=== PATIENT | male | born 1985 | race African-American/Black ===

== ENCOUNTER 2016-07-27 06:52 | Emergency (ER) | payer OTHER ==
[2016-07-27 07:11] VITALS: TEMP 98.4; BMI 30.7
--- NOTE | 2016-07-27 07:18 | PDOC ---
History of Present Illness - General Chief Complaint: Pain Stated Complaint: ABD PAIN Time Seen by Provider: 07/27/16 07:16 History Source: Patient Exam Limitations: No Limitations - History of Present Illness Initial Comments: CHIEF COMPLAINT: 31 y/o afebrile male with no significant PMH c/o abdominal pain, diarrhea and nausea since yesterday. HISTORY OF PRESENT ILLNESS: The patient states he's had a few episodes of watery diarrhea. He states he's been nervous to eat because it causes pain in his stomach and points to the epigastric region. He denies f/c, FINE, vomiting, CP, SOB, back pain, hematuria, dysuria. Vital signs on arrival are within normal limits. REVIEW OF SYSTEMS: GENERAL/CONSTITUTIONAL: No fever/chills. No weakness. No weight change. HEAD, EYES, EARS, NOSE AND THROAT: No change in vision. No ear pain or discharge. No sore throat. CARDIOVASCULAR: No chest pain or shortness of breath. RESPIRATORY: No cough, wheezing, or hemoptysis. GASTROINTESTINAL: +abd pain, diarrhea, nausea. No vomiting. GENITOURINARY: No dysuria, frequency, or change in urination. MUSCULOSKELETAL: No joint or muscle swelling or pain. No neck or back pain. SKIN: No rash or easy bruising. NEUROLOGIC: No headache, vertigo, loss of consciousness, or loss of sensation. PHYSICAL EXAM: GENERAL: The patient is awake, alert, and fully oriented, in no acute distress. He is ambulatory and appears uncomfortable. HEAD: Normal with no signs of trauma. ENT: Pupils equal, round and reactive to light, extraocular movements intact, sclera anicteric, conjunctiva clear. Neck supple. LUNGS: Clear to auscultation bilaterally. Normal excursion. No respiratory distress or use of accessory muscles. CV: RRR, S1/S2, no MRG. Cap refill < 2 sec. ABDOMEN: Soft, non-distended, TTP of epigastric region with +pritchard's sign. No rebound, guarding, rigidity. EXTREMITIES: Normal range of motion, no edema. NEUROLOGICAL: Normal speech, normal gait. CN II-XII grossly intact. PSYCH: Normal mood, normal affect. SKIN: Warm, dry, normal turgor, no rashes or lesions noted. Timing/Duration: reports: constant Past History - Past Medical History Allergies/Adverse Reactions: Allergies Allergy/AdvReac Type Severity Reaction Status Date / Time No Known Allergies Allergy Verified 07/27/16 07:08 Home Medications: Ambulatory Orders NK [No Known Home Medication] 07/27/16 Suicide Attempt (Hx): No Other medical history: denies - Immunization History Immunization Up to Date: No - Psycho/Social/Smoking Cessation Hx Anxiety: No Suicidal Ideation: No Smoking Status: No Smoking History: Never smoked Number of Cigarettes Smoked Daily: 5 Hx Alcohol Use: Yes (OCCASIONALLY) Drug/Substance Use Hx: No Substance Use Type: Alcohol, Marijuana *Physical Exam - Vital Signs Last Vital Signs Temp Pulse Resp BP Pulse Ox 98.4 F 70 18 142/93 98 07/27/16 07:09 07/27/16 07:09 07/27/16 07:09 07/27/16 07:09 07/27/16 07:09 ED Treatment Course - LABORATORY CBC & Chemistry Diagram: 07/27/16 09:10 07/27/16 09:10 Medical Decision Making - Medical Decision Making A/P: 31 y/o male with abdominal pain and diarrhea since yesterday. Plan is as follows: 1. Labs 2. IV fluids 3. IV zofran and pepcid 4. Gallbladder ultrasound Gallbladder ultrasound IMPRESSION: No evidence of acute pathology Labs unremarkable. Pt states he is no longer nauseous but still has some abdominal discomfort. He was able to pass a PO challenge, eating and drinking in the ER without subsequent vomiting. Pt will be discharged to home with dx of GI virus. Suggested he slowly rehydrate with fluids and slowly advance bland diet Instructed him to return to the ER with any worsening or concerning symptoms. The patient verbalizes understanding of all instructions, has no further questions and is awaiting discharge. *DC/Admit/Observation/Transfer Diagnosis at time of Disposition: Gastroenteritis - Discharge Dispostion Disposition: HOME Condition at time of disposition: Improved - Referrals Referrals: Judy Liu MD [Primary Care Provider] - Call tomorrow - Patient Instructions Printed Discharge Instructions: DI for Viral Gastroenteritis -- Adult, Gastroenteritis Diet Additional Instructions: Discharge Instructions: -Continue rehydrating by drinking fluids such as gatorade, water. -Slowly reintroduce suggested Gastroenteritis diet -Get plenty of rest -Follow up with Dr. Liu this week -Return to the ER with any worsening or concerning symptoms - Post Discharge Activity Work/School Note: Back to Work
[2016-07-27] MEDS ORDERED: SODIUM CHLORIDE 1,000 ML IV STA (07:26)
[2016-07-27] MEDS ORDERED: ONDANSETRON 4 MG/2 ML VIAL IVPUSH ONE (07:26)
[2016-07-27] MEDS ORDERED: FAMOTIDINE 20 MG/50 ML IVPB 50 ML IVPB ONE ×2 (07:26→08:07)
[2016-07-27] MEDS ORDERED: ONDANSETRON 4 MG/2 ML VIAL ONE (08:07)
[2016-07-27 09:45] LABS: BASOPHIL 0.3 % (0-2.0); EOSINOPHIL 4.2 % (0-4.5); MCH 33.6 pg (25.7-33.7); MCHC 34.4 g/dl (32.0-35.9); MEAN CELL VOLUME 97.5 fl (80-96); MEAN PLT VOLUME 8.5 fl (7.5-11.1); NEUTROPHILS 73.1 % (42.8-82.8); PLATELET COUNT 211 K/MM3 (134-434); RDW 13.2 % (11.9-15.9); WHITE BLOOD COUNT 7.9 K/mm3 (4.0-10.0)
[2016-07-27 10:04] LABS: ALBUMIN 3.9 g/dl (3.4-5.0); ANION GAP 10 (8-16); BILIRUBIN,TOTAL 0.9 mg/dL (0.2-1.0); CALCIUM 9.4 mg/dL (8.5-10.1); CO2 23 mmol/L (21-32); CREATININE 1.1 mg/dL (0.7-1.3); GLUCOSE,RANDOM 83 mg/dL (74-106); SGPT/ALT 54 U/L (12-78); TOT PROT 7.1 g/dl (6.4-8.2)
[2016-07-27 10:05] LABS: ALK PHOS 91 U/L (45-117)
[2016-07-27 10:07] LABS: SGOT/AST 38 U/L (15-37)
[2016-07-27 11:16] VITALS: BP 136/70; PULSE 53
== END 2016-07-27 11:22 | disposition home or self-care (01) ==
LOC: JER 06:52
PROC: 3E033GC Introduction of Other Therapeutic Substance into Peripheral Vein, Percutaneous Approach (ICD-10-PCS; principal; 2016-07-27)
DX: K52.9 Noninfective gastroenteritis and colitis, unspecified (principal)
CPT/HCPCS: 36415; 76705-TC; 80053; 83690; 85025; 96365; 96375; 99282-25

== ENCOUNTER 2016-10-05 23:29 | Emergency (ER) | payer OTHER ==
[2016-10-06 02:30] VITALS: BP 129/89; PULSE 100; TEMP 97.3; BMI 31.1
[2016-10-06] MEDS ORDERED: IBUPROFEN 400 MG TABLET (FP) PO ONE ×2 (02:33→02:41)
--- NOTE | 2016-10-06 02:33 | PDOC ---
History of Present Illness - History of Present Illness Initial Comments: 10/06/16 02:36 The patient is a 31 year old male, with no significant past medical history, who presents to the emergency department with pain to his left ankle after stepping out of his apartment and feeling his ankle roll. The patient denies falling. The patient denies any numbness or tingling. He denies chest pain, shortness of breath, headache and dizziness. He denies fever, chills, nausea, vomit, diarrhea and constipation. Allergies: NKDA <Fay Barfield - Last Filed: 10/06/16 02:36> - General History Source: Patient <Gurmeet Elizondo - Last Filed: 10/06/16 03:37> - General Chief Complaint: Injury Stated Complaint: LT ANKLE INJURY Time Seen by Provider: 10/06/16 02:31 Past History <Fay Barfield - Last Filed: 10/06/16 02:36> - Past Medical History Suicide Attempt (Hx): No Other medical history: denies - Immunization History Immunization Up to Date: No - Psycho/Social/Smoking Cessation Hx Anxiety: No Suicidal Ideation: No Smoking Status: No Smoking History: Current some day smoker Have you smoked in the past 12 months: Yes Number of Cigarettes Smoked Daily: 2 Information on smoking cessation initiated: No Hx Alcohol Use: No Drug/Substance Use Hx: No Substance Use Type: Alcohol, Marijuana <Gurmeet Elizondo - Last Filed: 10/06/16 03:37> - Past Medical History Allergies/Adverse Reactions: Allergies Allergy/AdvReac Type Severity Reaction Status Date / Time No Known Allergies Allergy Verified 10/06/16 02:31 Home Medications: Ambulatory Orders Doxycycline Hyclate [Acticlate] 150 mg PO DAILY 10/06/16 Ibuprofen 800 mg PO TID #30 tablet 10/06/16 Oxycodone HCl/Acetaminophen [Percocet 5-325 mg Tablet] 1 - 2 tab PO Q6H #20 tablet MDD 4 10/06/16 Review of Systems - Review of Systems Able to Perform ROS?: Yes Comments:: 10/06/16 02:37 CONSTITUTIONAL: Absent: fever, no chills, no fatigue EYES: Absent: visual changes ENT: Absent: ear pain, no sore throat CARDIOVASCULAR: Absent: chest pain, no palpitations RESPIRATORY: Absent: cough, no SOB GI: Absent: abdominal pain, no nausea, no vomiting, no constipation, no diarrhea GENITOURINARY: Absent: dysuria, no frequency, no hematuria MUSCULOSKELETAL: (+) Right ankle pain and swelling. Absent: back pain SKIN: Absent: rash NEURO: Absent: headache <Praitbha Barfieldanda - Last Filed: 10/06/16 02:36> *Physical Exam - Vital Signs Last Vital Signs Temp Pulse Resp BP Pulse Ox 97.3 F L 100 H 16 129/89 95 10/06/16 02:26 10/06/16 02:26 10/06/16 02:26 10/06/16 02:10/06/16 02:26 - Physical Exam Comments: 10/06/16 02:38 GENERAL: Well-appearing, well-nourished. No apparent distress. HEENT: Normocephalic, atraumatic. PERRL, EOM intact. CARDIOVASCULAR: Normal S1, S2. Regular rate and rhythm. PULMONARY: Clear to auscultation bilaterally. ABDOMEN: Soft, non-distended, non-tender. EXTREMITIES: (+) ttp and swelling over left lateral malleolus. No bony deformity or joint laxity. ROM deferred due to pain. SKIN: Warm, dry. No rash NEUROLOGICAL: No focal neurological deficits. <Fay Barfield - Last Filed: 10/06/16 02:36> - Vital Signs Last Vital Signs Temp Pulse Resp BP Pulse Ox 97.3 F L 100 H 16 129/89 95 10/06/16 02:26 10/06/16 02:26 10/06/16 02:26 10/06/16 02:26 10/06/16 02:26 <Gurmeet Elizondo - Last Filed: 10/06/16 03:37> Medical Decision Making - Medical Decision Making 10/06/16 03:36 Dr. Elizondo: The scribe's documentation has been prepared under my direction and personally reviewed by me in its entirery. I confirm that the note above accurately reflects all work, treatment, procedures, and medical decision making performed by me. Pt with ankle sprain. Will be referred to Ortho. Pt with be given an viki wrap and crutches fro non-weight bearing <Gurmeet Elizondo - Last Filed: 10/06/16 03:37> *DC/Admit/Observation/Transfer - Attestations Scribe Attestion: 10/06/16 02:39 Documentation prepared by Fay Barfield, acting as phlebotomist medical lab assistant for Gurmeet Elizondo MD <Fay Barfield - Last Filed: 10/06/16 02:36> - Discharge Dispostion Admit: No <Gurmeet Elizondo - Last Filed: 10/06/16 03:37> Diagnosis at time of Disposition: Left ankle sprain Qualifiers: Encounter type: initial encounter Involved ligament of ankle: unspecified ligament Qualified Code(s): S93.402A - Sprain of unspecified ligament of left ankle, initial encounter - Discharge Dispostion Disposition: HOME Condition at time of disposition: Stable - Referrals Referrals: Princess Lira MD [Primary Care Provider] - Silas Roberts MD [Staff Physician] - - Patient Instructions Printed Discharge Instructions: DI for Ankle Sprain
[2016-10-06] MEDS ORDERED: OXYCODONE/APAP 5/325MG COMBO TABLET PO ONE (03:34)
[2016-10-06] MEDS ORDERED: OXYCODONE/APAP 5/325MG COMBO TABLET ONE (03:46)
== END 2016-10-06 04:47 | disposition home or self-care (01) ==
LOC: JER 23:29
DX: S93.402A Sprain of unspecified ligament of left ankle, initial encounter (principal); X50.1XXA Overexertion from prolonged static or awkward postures, initial encounter; Y93.89 Activity, other specified; Y92.038 Other place in apartment as the place of occurrence of the external cause; Y99.8 Other external cause status
CPT/HCPCS: 73610-TC-LT; 99283-25

== ENCOUNTER 2016-11-13 02:22 | Day surgery (SDC) | payer OTHER ==
[~2016-11-13 02:22] MED LIST: BUPIVACAINE HCL/PF 0.5% (5MG/ML) 10 ML VIAL IJ ONE
[2016-11-13 03:23] VITALS: BMI 31.1
[2016-11-13] MEDS ORDERED: KETOROLAC TROMETHAMINE 30 MG/1 ML VIAL IVPUSH ONE (04:03)
--- NOTE | 2016-11-13 04:37 | PDOC ---
History of Present Illness - General Chief Complaint: Pain, Acute Stated Complaint: STOMACH/NECK PAIN Time Seen by Provider: 11/13/16 02:59 - History of Present Illness Initial Comments: 11/13/16 04:20 CHIEF COMPLAINT: neck and abd pain HISTORY OF PRESENT ILLNESS: 31 yo M with no PMH presents to ED with left sided neck pain x 3 days and right sided abdominal pain that started today. He denies any recent trauma, injury, or motor vehicle accidents. He denies any vomiting or diarrhea but does report "some nausea today." He denies headache, fever, chills, shortness of breath. No recent travel or sick contacts. PAST MEDICAL HISTORY: Denies past medical history FAMILY HISTORY: Denies SOCIAL HISTORY: Denies tobacco, alcohol, illicit drug use. SURGICAL HISTORY: Denies ALLERGIES: No known drug allergies REVIEW OF SYSTEMS General/Constitutional: Denies fever or chills. Denies weakness, weight change. HEENT: Denies change in vision. Denies ear pain or discharge. Denies sore throat. Cardiovascular: Denies chest pain or shortness of breath. Respiratory: Denies cough, wheezing, or hemoptysis. Gastrointestinal: Abdominal pain and nausea x 1 day. Denies diarrhea or constipation. Denies rectal bleeding. Genitourinary: Denies dysuria, frequency, or change in urination. Musculoskeletal: Left sided neck pain. Skin and breasts: Denies rash or easy bruising. PHYSICAL EXAM General Appearance: Well-appearing, appropriately dressed. No apparent distress. HEENT: EOMI, PERRLA, normal ENT inspection, normal voice, TMs normal, pharynx normal. No conjunctival pallor. No photophobia, scleral icterus. Neck: Patient unable to touch chin to chest secondary to pain/stiffness to L side of neck. TTP to left neck. No tenderness to cervical spine. Trachea midline. No tcarotid bruit, stridor, lymphadenopathy, or thyromegaly. Respiratory/Chest: Lungs CTAB. No shortness of breath, chest tenderness, respiratory distress, accessory muscle use. No crackles, rales, rhonchi, stridor , wheezing, dullness Cardiovascular: RRR. S1, S2. Gastrointestinal/Abdominal: Marked tenderness to RLQ. No organomegaly, pulsatile mass, guarding, hernia, hepatomegaly, splenomegaly. Musculoskeletal/Extremities: Normal inspection. FROM of all extremities, normal capillary refill. Pelvis Stable. No CVA tenderness. No tenderness to extremities, pedal edema, swelling, erythema or deformity. Integumentary: Appropriate color, dry, warm. No cyanosis, erythema, jaundice or rash Neurologic: shrimp peeler II-XII intact. Fully oriented, alert. Appropriate mood/affect. Motor strength 5/5. No appreciable EOM palsy, facial droop or sensory deficit. 11/13/16 06:33 Past History - Past Medical History Allergies/Adverse Reactions: Allergies Allergy/AdvReac Type Severity Reaction Status Date / Time No Known Allergies Allergy Verified 10/06/16 02:31 Home Medications: Ambulatory Orders NK [No Known Home Medication] 11/13/16 Suicide Attempt (Hx): No - Immunization History Immunization Up to Date: No - Psycho/Social/Smoking Cessation Hx Anxiety: No Suicidal Ideation: No Smoking Status: No Smoking History: Current every day smoker Have you smoked in the past 12 months: Yes Number of Cigarettes Smoked Daily: 2 Cigars Per Day: 2 Information on smoking cessation initiated: No Hx Alcohol Use: No Drug/Substance Use Hx: No Substance Use Type: Alcohol, Marijuana *Physical Exam - Vital Signs Last Vital Signs Temp Pulse Resp BP Pulse Ox 98.5 F 69 19 155/99 97 11/13/16 03:10 11/13/16 03:10 11/13/16 03:10 11/13/16 03:10 11/13/16 03:10 ED Treatment Course - LABORATORY CBC & Chemistry Diagram: 11/14/16 06:00 11/14/16 06:00 - RADIOLOGY Radiology Studies Ordered: Category Date Time Status ABDOMEN & PELVIS CT WITH CONTR [CT] Stat CT Scan 11/13/16 04:02 Ordered Medical Decision Making - Medical Decision Making 11/13/16 06:01 31 yo M with no PMH presents to ED with left sided neck pain x 3 days and right sided abdominal pain that started today. -CBC, CMP, lipase -Abdomen and pelvis CT -Cervical spine CT Labs: WBC: 14.5, otherwise unremarkable Case discussed in detail with oncoming emergency provider including history, physical exam and ancillary studies. In brief, this patient is being seen in the ED for a chief complaint of: I have completed the initial assessment interview note and have ordered the following labs: CBC, CMP, lipase I have reviewed the following results: labs Pending results: abd/pelv, c-spine CTs Please call the PCP: Pankaj Plan for disposition as follows: pending Oncoming NPA Lisa has assumed care for the patient and will complete the evaluation and treatment. 11/13/16 06:39 *DC/Admit/Observation/Transfer Diagnosis at time of Disposition: Acute appendicitis Qualifiers: Acute appendicitis type: with localized peritonitis Qualified Code(s): K35.3 - Acute appendicitis with localized peritonitis - Discharge Dispostion Disposition: HOME Condition at time of disposition: Stable
[2016-11-13] MEDS ORDERED: KETOROLAC TROMETHAMINE 30 MG/1 ML VIAL ONE (05:04)
[2016-11-13 05:17] LABS: BASOPHIL 0.4 % (0-2.0); EOSINOPHIL 2.8 % (0-4.5); MCH 32.9 pg (25.7-33.7); MCHC 33.9 g/dl (32.0-35.9); MEAN CELL VOLUME 97.2 fl (80-96); MEAN PLT VOLUME 8.3 fl (7.5-11.1); NEUTROPHILS 71.4 % (42.8-82.8); PLATELET COUNT 205 K/MM3 (134-434); RDW 13.2 % (11.9-15.9); WHITE BLOOD COUNT 14.5 K/mm3 (4.0-10.0)
[2016-11-13 05:56] LABS: ALBUMIN 3.8 g/dl (3.4-5.0); ALK PHOS 81 U/L (45-117); ANION GAP 11 (8-16); BILIRUBIN,TOTAL 0.7 mg/dL (0.2-1.0); CALCIUM 8.7 mg/dL (8.5-10.1); CO2 24 mmol/L (21-32); COCKROFT - GAULT 168.58; CREATININE 0.9 mg/dL (0.7-1.3); GLUCOSE,RANDOM 101 mg/dL (74-106); SGOT/AST 37 U/L (15-37); SGPT/ALT 69 U/L (12-78); TOT PROT 6.7 g/dl (6.4-8.2)
--- NOTE | 2016-11-13 07:38 | PDOC ---
ED Treatment Course - LABORATORY CBC & Chemistry Diagram: 11/13/16 05:00 11/13/16 05:09 - ADDITIONAL ORDERS Additional order review: Laboratory Results 11/13/16 11/13/16 05:09 05:09 Sodium 141 Potassium 4.2 Chloride 106 Carbon Dioxide 24 Anion Gap 11 BUN 12 Creatinine 0.9 Creat Clearance w eGFR > 60 Random Glucose 101 D Calcium 8.7 Total Bilirubin 0.7 D AST 37 ALT 69 D Alkaline Phosphatase 81 Total Protein 6.7 Albumin 3.8 Lipase 96 11/13/16 05:00 RBC 4.66 MCV 97.2 H MCHC 33.9 RDW 13.2 MPV 8.3 Neutrophils % 71.4 Lymphocytes % 12.0 D Monocytes % 13.4 H Eosinophils % 2.8 Basophils % 0.4 - Medications Given in the ED: ED Medications Discontinued Medications Generic Name Dose Route Start Last Admin Trade Name Freq PRN Reason Stop Dose Admin Ketorolac Tromethamine 30 mg 11/13/16 04:03 11/13/16 05:07 Toradol Injection - IVPUSH 11/13/16 04:04 30 mg ONCE ONE Administration Progress Note - Progress Note Progress Note: I have received report from ISRAEL Madison regarding this patient. Pt's initial chief complaint: left sided neck pain and right sided abd pain Pt's work up completed prior to sign out: labs Pt treatment given from prior staff: CT scan abd/pelvis and CT scan cervical spine Pt plan to be completed: Awaiting results of CT scans Dispo: Pending Medical Decision Making - Medical Decision Making A/P: 31 y/o afebrile male c/o left sided neck pain x 3 days and right sided abd pain today. Pt was initially assessed by ISRAEL Madison. Labs drawn. Awaiting results of CT scan of cervical spine and abd/pelvis. CT cervical spine IMPRESSION: No frature. C5/C6 disc herniation mild central canal with additional questionable C6-C7 herniation. CT scan abd/pelvis IMPRESSION: Possible early appendicitis without abscess or free air. Spoke with Dr. Leong and he will see the patient today. Paged Hospitalist for admission Made patient NPO and ordered IV Unasyn Informed the patient of the results and plan for admission. *DC/Admit/Observation/Transfer Diagnosis at time of Disposition: Acute appendicitis Qualifiers: Acute appendicitis type: with localized peritonitis Qualified Code(s): K35.3 - Acute appendicitis with localized peritonitis - Discharge Dispostion Condition at time of disposition: Fair Admit: Yes
[2016-11-13] MEDS ORDERED: AMPICILLIN NA/SULBACTAM NA 3 GM in SODIUM CHLORIDE 100 ML IVPB ONE (07:55)
--- NOTE | 2016-11-13 08:33 | CONSULT ---
- Consultation REQUESTED PROVIDER: Dr. Leong CONSULT REQUEST: We have been asked to surgically evaluate this patient for acute appendicitis. PCP: HISTORY OF PRESENT ILLNESS: 31 yo M presented to ED complaining of abdominal pain that began after eating dinner last night. Patient states the pain started in the center of his abdomen at his umbilicus and then traveled to his lower abdomen. Pain is now mostly in the RLQ. The pain is constant, sharp, and crampy. The pain rated as a 10/10 in severity but has improved with pain medication in the ED. He has had some associated nausea, but denies vomiting. His last meal was baked ziti last evening. His last bowel movement was very early this morning. He denies constipation, diarrhea, fever, or chills. PMHx: Kidney stone >10 years ago PSHx: Denies SocialHx: smokes 1-2 cigars daily, 1-2 drinks daily Home Medications Medication Instructions Recorded NK [No Known Home Medication] 11/13/16 Allergies Allergy/AdvReac Type Severity Reaction Status Date / Time No Known Allergies Allergy Verified 10/06/16 02:31 REVIEW OF SYSTEMS: CONSTITUTIONAL: Absent: fever, chills, generalized weakness, loss of appetite CARDIOVASCULAR: Absent: chest pain, palpitations RESPIRATORY: Absent: cough, shortness of breath GASTROINTESTINAL: Present: abdominal pain, nausea Absent: vomiting, diarrhea, constipation GENITOURINARY: Absent: dysuria, frequency MUSCULOSKELETAL: Present: left sided neck pain x 3 days, woke up with pain Absent: myalgia, arthralgia SKIN: Absent: rash, itching HEMATOLOGIC/IMMUNOLOGIC: Absent: easy bleeding, easy bruising NEUROLOGIC: Absent: headache, paresthesias, dizziness, u PHYSICAL EXAM: GENERAL: Awake, alert, and fully oriented, in no acute distress. HEAD: Normal with no signs of trauma EYES: PERRL, sclera anicteric, conjunctiva clear LUNGS: Clear to auscultation bilat anteriorly HEART: Regular rate and rhythm ABDOMEN: Soft, not distended, tenderness with palp RLQ, minimal guarding UPPER EXTREMITIES: 2+ pulses, warm, well-perfused LOWER EXTREMITIES: 2+ pulses, warm, well-perfused. No calf tenderness NEUROLOGICAL: Normal speech, gait not observed. PSYCH: Cooperative. Good eye contact. Appropriate mood and affect. SKIN: Warm, dry. Vital Signs Temperature 98.5 F 11/13/16 03:10 Pulse Rate 60 11/13/16 07:26 Respiratory Rate 18 11/13/16 07:26 Blood Pressure 130/76 11/13/16 07:26 O2 Sat by Pulse Oximetry (%) 97 11/13/16 07:26 Lab Results WBC 14.5 K/mm3 (4.0-10.0) H D 11/13/16 05:00 RBC 4.66 M/mm3 (4.00-5.60) 11/13/16 05:00 Hgb 15.3 GM/dL (11.7-16.9) 11/13/16 05:00 Hct 45.2 % (35.4-49) 11/13/16 05:00 MCV 97.2 fl (80-96) H 11/13/16 05:00 MCHC 33.9 g/dl (32.0-35.9) 11/13/16 05:00 RDW 13.2 % (11.9-15.9) 11/13/16 05:00 Plt Count 205 K/MM3 (134-434) 11/13/16 05:00 Sodium 141 mmol/L (136-145) 11/13/16 05:09 Potassium 4.2 mmol/L (3.5-5.1) 11/13/16 05:09 Chloride 106 mmol/L (98-107) 11/13/16 05:09 Carbon Dioxide 24 mmol/L (21-32) 11/13/16 05:09 Anion Gap 11 (8-16) 11/13/16 05:09 BUN 12 mg/dL (7-18) 11/13/16 05:09 Creatinine 0.9 mg/dL (0.7-1.3) 11/13/16 05:09 Random Glucose 101 mg/dL (74-106) D 11/13/16 05:09 Calcium 8.7 mg/dL (8.5-10.1) 11/13/16 05:09 CT scan abd/pelvis: Mild thickening of the base of the appendix associated with mild inflammatory stranding, appearance suggests early appendicitis Problem List - Problems (1) Acute appendicitis Assessment/Plan: Patient discussed with Dr. Leong Plan for OR today for laparoscopic, possible open, appendectomy NPO, IV fluids pain control Unasyn given in ED Code(s): K35.80 - UNSPECIFIED ACUTE APPENDICITIS Qualifiers: Qualified Code(s): K35.3 - Acute appendicitis with localized peritonitis Visit type - Case Type Case Type: ED Admission - Emergency Emergency Visit: Yes ED Registration Date: 11/13/16 Care time: The patient presented to the Emergency Department on the above date and was hospitalized for further evaluation of their emergent condition. - New patient This patient is new to me today: Yes Date on this admission: 11/13/16
[2016-11-13] MEDS ORDERED: ACETAMINOPHEN 1000 MG/100 ML VIAL (NON FORMULARY) IVPB PRN (09:58)
[2016-11-13] MEDS ORDERED: DEXTROSE 5%-NORMAL SALINE 1,000 ML IV SCH ×2 (10:00→13:04)
[2016-11-13] MEDS ORDERED: ONDANSETRON 4 MG/2 ML VIAL IVPUSH PRN ×2 (10:09→13:04)
--- NOTE | 2016-11-13 10:09 | HP ---
CHIEF COMPLAINT: left sided neck pain and right lower quad abd pain PCP: not on staff HISTORY OF PRESENT ILLNESS: This 31 yo M presented to ED initially complaining of lower quad abdominal pain that began after eating dinner last night as well as left sided neck pain. He has no recent trauma or cause for the neck pain. He also states the pain started in the center of his abdomen at his umbilicus and then traveled to his lower abdomen. Pain is now mostly in the RLQ. The pain is constant, sharp, and crampy to the abd. The pain rated as a 10/10 in severity but has improved with pain medication in the ED. He has had some associated nausea, but denies vomiting. His last meal was baked ziti last evening. His last bowel movement was very early this morning. He denies constipation, diarrhea, fever, or chills. Noted in ER exams 1. neck pain with findings on CT cervical spine IMPRESSION: No frature. C5/C6 disc herniation mild central canal with additional questionable C6-C7 herniation. 2. Abdominal pain with findings on CT scan abd/pelvis IMPRESSION: Possible early appendicitis without abscess or free air. -Unasyn started -surgical consult called to Dr. Leong who requested NPO and spoke with pt to be taken to OR today for early appendicitis Recent Travel: none PAST MEDICAL HISTORY: kidney stones greater then 10 years ago PAST SURGICAL HISTORY: none Social History: Smoking:cigar smoker Alcohol:daily 1-2 drinks Drugs: social marijuana Family History: Allergies No Known Allergies Allergy (Verified 10/06/16 02:31) HOME MEDICATIONS: Home Medications Medication Instructions Recorded NK [No Known Home Medication] 11/13/16 REVIEW OF SYSTEMS CONSTITUTIONAL: Absent: fever, chills, diaphoresis, generalized weakness, malaise, loss of appetite, weight change CARDIOVASCULAR: Absent: chest pain, syncope, palpitations, irregular heart rate, lightheadedness , peripheral edema RESPIRATORY: Absent: cough, shortness of breath, dyspnea with exertion, orthopnea, wheezing, stridor, hemoptysis GASTROINTESTINAL: Absent:(+) abdominal pain, (-)abdominal distension,(+) nausea,(-) vomiting, (-) diarrhea, (-)constipation, GENITOURINARY: Absent: dysuria, frequency, urgency, hesitancy, hematuria, flank pain, genital pain MUSCULOSKELETAL: Absent: myalgia, arthralgia, joint swelling, back pain, (+) neck pain SKIN: Absent: rash, itching, pallor HEMATOLOGIC/IMMUNOLOGIC: Absent: easy bleeding, easy bruising, lymphadenopathy, frequent infections ENDOCRINE: Absent: unexplained weight gain, unexplained weight loss, heat intolerance, cold intolerance NEUROLOGIC: Absent: headache, focal weakness or paresthesias, dizziness, unsteady gait, seizure, mental status changes, bladder or bowel incontinence PSYCHIATRIC: Absent: anxiety, depression, suicidal or homicidal ideation, hallucinations. PHYSICAL EXAMINATION GENERAL: Awake, alert, and fully oriented, in no acute distress. HEAD: Normal with no signs of trauma. NECK: Normal range of motion, supple without lymphadenopathy, JVD, or masses. + neck pain when rotation and flexion LUNGS: Breath sounds equal, clear to auscultation bilaterally. No wheezes, and no crackles. No accessory muscle use. HEART: Regular rate and rhythm, normal S1 and S2 without murmur, rub or gallop. ABDOMEN: Soft, + RLQ tender on palpation, not distended, normoactive bowel sounds, no guarding, no rebound, no masses. No hepatomegaly or splenomegaly. MUSCULOSKELETAL: Normal range of motion at all joints. No bony deformities or tenderness. No CVA tenderness. UPPER EXTREMITIES: 2+ pulses, warm, well-perfused. No cyanosis. No clubbing. No peripheral edema. LOWER EXTREMITIES: 2+ pulses, warm, well-perfused. No calf tenderness. No peripheral edema. NEUROLOGICAL: Cranial nerves II-XII intact. Normal speech. Normal gait. PSYCHIATRIC: Cooperative. Good eye contact. Appropriate mood and affect. SKIN: Warm, dry, normal turgor, no rashes or lesions noted, normal capillary refill. ASSESSMENT/PLAN: 1. Appendicitis: -no perforation, shows inflammation and early stages of appendicitis -Unasyn started -Surgical consult with Dr. Leong taking pt to OR today -NPO -labs, ua, type and screen pre op orders in -IVF started while NPO -pain meds ordered prn 2. cervical herniations -tylenol prn ordered -ice and rest without heavy lifting or pulling. 3. GI/ppx 4. Admission to med surg inpatient ordered placed. Visit type - Emergency Visit Emergency Visit: Yes ED Registration Date: 11/13/16 Care time: The patient presented to the Emergency Department on the above date and was hospitalized for further evaluation of their emergent condition. - New Patient This patient is new to me today: Yes Date on this admission: 11/13/16 - Critical Care Critical Care patient: No
[2016-11-13] MEDS ORDERED: SUCCINYLCHOLINE CHLORIDE 200 MG/10 ML VIAL ONE (10:35)
[2016-11-13] MEDS ORDERED: PROPOFOL 20 ML ONE ×3 (10:35)
[2016-11-13] MEDS ORDERED: ePHEDrine SULFATE 50 MG/1 ML AMPULE ONE (10:35)
[2016-11-13] MEDS ORDERED: MIDAZOLAM HCL 2 MG/2 ML SINGLE DOSE VIAL ONE (10:36)
[2016-11-13] MEDS ORDERED: ROCURONIUM BROMIDE 50 MG/5 ML VIAL ONE ×2 (10:36→11:29)
--- NOTE | 2016-11-13 10:37 | PN ---
Progress Note (short form) - Note Progress Note: Attending Surgeon Patient seen and evaluated; chart reviewed; PA consult reviewed; concur w/ assessment and plan as outlined by the PA; for lap appendectomy; possible open; r/b/t d/w the patient and informed consent obtained; pre-op teaching was done. Silas Leong MD FACS.
[2016-11-13] MEDS ORDERED: BUPIVACAINE HCL/PF 0.5% (5MG/ML) 10 ML VIAL ONE (10:38)
[2016-11-13] MEDS ORDERED: ceFAZolin SODIUM 1 GM VIAL IVPB ONE (11:13)
[2016-11-13] MEDS ORDERED: NEOSTIGMINE METHYLSULFATE 0.5 MG/ML - 10 ML MDV ONE (11:50)
[2016-11-13] MEDS ORDERED: BUPIVACAINE HCL/PF 0.5% (5MG/ML) 10 ML VIAL IJ ONE (11:58)
--- NOTE | 2016-11-13 12:09 | OP ---
Operative Note - Note: Operative Date: 11/13/16 Pre-Operative Diagnosis: acute appendicitis Operation: laparoscopic appendectomy Findings: acute suppurative appendicitis Post-Operative Diagnosis: Same as Pre-op Surgeon: Silas Leong Food Prep Worker: Sarah Beal Anesthesia: General Specimens Removed: appendix Estimated Blood Loss (mls): 15 Drains & Tubes with Location: none Operative Report Dictated: Yes
--- NOTE | 2016-11-13 12:22 | SURG ---
Surgery Java Manager Note Java Manager: Sarah Beal PA-C Date of Service: 11/13/16 Diagnosis: acute appendicitis Procedure: laparoscopic appendectomy I was present for the entirety of the operative procedure. For further detail, please refer to operative report. Visit type - Case Type Case Type: ED Admission - Emergency Emergency Visit: Yes ED Registration Date: 11/13/16 Care time: The patient presented to the Emergency Department on the above date and was hospitalized for further evaluation of their emergent condition. - New patient This patient is new to me today: Yes Date on this admission: 11/13/16 - Critical Care Critical Care patient: No
[2016-11-13] MEDS ORDERED: KETOROLAC TROMETHAMINE 30 MG/1 ML VIAL IVPUSH PRN (12:28)
[2016-11-13] MEDS ORDERED: oxyCODONE HCL 5 MG TABLET PO PRN (12:29)
[2016-11-13] MEDS: ACETAMINOPHEN 1000 MG/100 ML VIAL (NON FORMULARY) IVPB ONE ×2 (12:32→15:54)
[2016-11-13] MEDS ORDERED: HYDROmorphone HCL CARPU-JECT 2 MG/1 ML DISP.SYRIN ONE (12:35)
[2016-11-13] MEDS: HYDROmorphone HCL CARPU-JECT 1 MG/1 ML DISP.SYRIN IVPUSH PRN ×2 (12:45→12:55)
[2016-11-13] MEDS ORDERED: HYDROmorphone HCL CARPU-JECT 1 MG/1 ML DISP.SYRIN IVPUSH PRN (13:04)
--- NOTE | 2016-11-13 17:25 | OP ---
DATE OF OPERATION: 11/13/2016 PREOPERATIVE DIAGNOSIS: Acute appendicitis. POSTOPERATIVE DIAGNOSIS: Acute appendicitis. PROCEDURE: Laparoscopic appendectomy. SURGEON: Silas Leong M.D. INSPECTOR BALANCE WHEEL MOTION: Tito Baron ANESTHESIA: General. OPERATIVE FINDINGS: Acute suppurating appendicitis. Rest of the findings were unremarkable. PROCEDURE: The patient was placed on operating table in supine position, and after the induction of general anesthesia and the placement of sequential compression devices on the patient's lower extremities, the abdomen was prepped with Chloraprep and draped in sterile fashion. A timeout was taken, and pneumoperitoneum was established above the umbilicus using a Veress needle. Once 15 mmHg pressure were achieved, a 5-mm port was placed at the umbilicus and laparoscopy carried out, and the previously noted findings were observed. Additional left lower quadrant 5-mm port and suprapubic 12-mm port were placed. The appendix was identified at the confluence of the tinea and placed on traction. Using the Ligasure, the mesoappendix was gradually divided close to its base. Hemostasis was verified. A 60-mm blue load Endo JEREMY was fired across the base of the appendix. The appendix was then placed in an Endocatch and brought out through the suprapubic port. Pneumoperitoneum was reestablished without evidence of bleeding, and then some omentum was placed down at the base of the cecum next to the appendiceal stump. Ports were removed under laparoscopic vision without evidence of bleeding from the port sites. The pneumoperitoneum was evacuated, and each port site was infiltrated with 0.5% Marcaine. The defect at the suprapubic fascia was closed with a single 0 Vicryl [id number] suture. All skin incisions were closed with 4-0 subcuticular Maxon followed by Steri-Strips and band-aid dressings. The procedure was terminated at this point. The patient was aroused from general anesthesia and then transferred to the postanesthesia care unit in stable condition awake and alert. Estimated blood loss 15 mL. Replacements crystalloid. Drains none. Specimens, appendix to pathology. I, Silas Leong, was physically present in the operating room from the time the patient was placed on the operating room table until he was transferred to the postanesthesia care unit in [place]. MD ERENDIRA Brooks/[id number]
[2016-11-13] MEDS ORDERED: AMPICILLIN NA/SULBACTAM NA 3 GM in SODIUM CHLORIDE 100 ML IVPB SCH (18:00)
[2016-11-13] MEDS ORDERED: ACETAMINOPHEN 325 MG TABLET (FP) PO PRN (19:00)
[2016-11-13] MEDS: HEPARIN NA (PORCINE) 5,000 UNITS/ML 1ML VIAL SQ SCH (21:27)
[2016-11-14] MEDS: oxyCODONE HCL 5 MG TABLET PO PRN ×2 (01:02→07:55)
[2016-11-14] MEDS: HEPARIN NA (PORCINE) 5,000 UNITS/ML 1ML VIAL SQ SCH (06:18)
[2016-11-14 07:09] LABS: BASOPHIL 0.4 % (0-2.0); EOSINOPHIL 0.5 % (0-4.5); MCH 33.5 pg (25.7-33.7); MCHC 34.6 g/dl (32.0-35.9); NEUTROPHILS 76.5 % (42.8-82.8); PLATELET COUNT 192 K/MM3 (134-434); RDW 13.2 % (11.9-15.9); WHITE BLOOD COUNT 16.4 K/mm3 (4.0-10.0)
[2016-11-14 07:38] LABS: ANION GAP 12 (8-16); CALCIUM 8.1 mg/dL (8.5-10.1); CO2 24 mmol/L (21-32); COCKROFT - GAULT 168.58; CREATININE 0.9 mg/dL (0.7-1.3); GLUCOSE,RANDOM 99 mg/dL (74-106); SGOT/AST 23 U/L (15-37); SGPT/ALT 44 U/L (12-78)
[2016-11-14 07:40] LABS: ALK PHOS 71 U/L (45-117); TOT PROT 5.7 g/dl (6.4-8.2)
--- NOTE | 2016-11-14 10:56 | PN ---
Progress Note (short form) - Note Progress Note: Attending Surgeon POD #1 no c/o; tolertaed regular diet; wants to leave; wanted to leave last PM abdo-soft; port site dressings c/d/i; o/w negative H/H stable; WBC 16.4 IMP: doing well PLAN: D/c to office f/u next week 11/19/16; instructed on wound care and that he should not weork until after I see him post op; a/a/u by the patient. Silas Leong MD FACS
[2016-11-14 11:10] VITALS: BP 143/78; PULSE 73; TEMP 98.2
--- NOTE | 2016-11-14 11:23 | DS ---
Physical Exam: SUBJECTIVE: Patient seen and examined Patient is feeling better, wants to go home. No fever or chills, no shortness of breath OBJECTIVE: Vital Signs Temperature 98.2 F 11/14/16 10:00 Pulse Rate 73 11/14/16 10:00 Respiratory Rate 18 11/14/16 10:00 Blood Pressure 143/78 11/14/16 10:00 O2 Sat by Pulse Oximetry (%) 96 11/13/16 21:00 PHYSICAL EXAM GENERAL: The patient is awake, alert, and fully oriented, in no acute distress. HEAD: Normal with no signs of trauma. EYES: PERRL, extraocular movements intact, sclera anicteric, conjunctiva clear. ENT: Ears normal, oropharynx clear without exudates, moist mucous membranes. NECK: Trachea midline, full range of motion, supple. LUNGS: Breath sounds equal, clear to auscultation bilaterally, no wheezes, no crackles, no accessory muscle use. HEART: Regular rate and rhythm, S1, S2 without murmur, rub or gallop. ABDOMEN: Soft, nontender, nondistended, normoactive bowel sounds, no guarding, no rebound, positive for dressings EXTREMITIES: 2+ pulses, warm, well-perfused, no edema. NEUROLOGICAL: Cranial nerves II through XII grossly intact. Normal speech, gait not observed. PSYCH: Normal mood, normal affect. SKIN: Warm, dry, normal turgor, no rashes or lesions noted. LABS Laboratory Results - last 24 hr 11/14/16 11/14/16 06:00 06:00 WBC 16.4 H RBC 4.18 Hgb 14.0 Hct 40.6 MCV 97.0 H MCHC 34.6 RDW 13.2 Plt Count 192 MPV 8.0 Neutrophils % 76.5 Lymphocytes % 12.3 Monocytes % 10.3 H Eosinophils % 0.5 D Basophils % 0.4 Sodium 140 Potassium 3.8 Chloride 104 Carbon Dioxide 24 Anion Gap 12 BUN 6 L D Creatinine 0.9 Creat Clearance w eGFR > 60 Random Glucose 99 Calcium 8.1 L Total Bilirubin 1.0 D AST 23 D ALT 44 D Alkaline Phosphatase 71 Total Protein 5.7 L Albumin 3.0 L D HOSPITAL COURSE: Date of Admission:11/13/16 Date of Discharge: 11/14/16 CT scan abd/pelvis: Mild thickening of the base of the appendix associated with mild inflammatory stranding, appearance suggests early appendicitis #POD #1 Acute appendicitis s/p Laporoscopic appendectomy by Dr. Leong. follow up with ; the surgeon. f/u next week 11/19/16; instructed on wound care and should not work until he is seen post op;in 's office. Discussed with Patient was recommended to take Motrin at home if develops pain. Patient has Motrin at home. to betaken with food, 400mg if needed. discharge time 30minutes. Minutes to complete discharge: 30 Discharge Summary Reason For Visit: ACUTE APPENDICITIS Current Active Problems Acute appendicitis (Acute) Condition: Stable - Instructions Diet, Activity, Other Instructions: Dr. Leong Discharge Instructions Dear ANTIONE MAHMOOD, Post Operative Instructions Physical activity Resume your normal everyday activity as tolerated no heavy lifting or exercise until seen by your surgeon. You may walk unlimited amounts of and climb stairs. You may resume driving the car when you feel safe and comfortable behind the wheel. Wound care If you have a bandage, leave it on, and keep dry for 48 - 72 hours. After that time discard the outer bandage. If there are tapes on the skin under the outer bandage, leave them in place. They will peel off in the next 7 to 10 days. Do Not peel them off. You may shower 2 days after surgery. If there are tapes present on the skin, they can get wet. Diet There are no dietary restrictions. Eat healthy, high-fiber foods. Drink 6 to 8 glasses of liquid each day. This will assist in keeping your bowels are regular. Pain management You may take Tylenol or acetaminophen or Ibuprofen (for example, Motrin, Advil etc.) Any pain prescription medication ordered should be taken as prescribed for moderate to severe pain. Call Dr. Leong for any of the following: Severe pain not relieved by medication Fever of 101 or higher Excessive bleeding or drainage on dressing Inability to urinate Call the office at [phone] for a post operative appointment in 7 - 10 days. Referrals: Silas Leong MD [Staff Physician] - Princess Lira MD [Primary Care Provider] - Disposition: HOME - Home Medications Comprehensive Discharge Medication List: Ambulatory Orders NK [No Known Home Medication] 11/13/16 This patient is new to me today: Yes Date on this admission: 11/14/16 Emergency Visit: Yes Care time: The patient presented to the Emergency Department on the above date and was hospitalized for further evaluation of their emergent condition. Critical Care patient: No - Discharge Referral Referred to [facility] Med [facility] No
--- NOTE | 2016-11-16 13:05 | PATH ---
Surgical Pathology Report Patient Name: ANTOINE MAHMOOD [facility]. Rec. #: [id number] /Age/Gender: 1985 (Age: 31) / M Account: [id number] Location: AMBULATORY SURG Taken: 11/13/2016 Received: 11/13/2016 Reported: 11/16/2016 Physicians: Silas Leong MD Specimen(s) Received APPENDIX Clinical History Acute appendicitis Final Diagnosis APPENDIX, APPENDECTOMY: ACUTE APPENDICITIS AND FOCAL PERIAPPENDICITIS. PARTIAL FIBROUS OBLITERATION. Electronically Signed Federico Orellana M.D. Gross Description Received in formalin, labeled "appendix" is a 5.5 cm. in length vermiform appendix with a stapled margin of resection and moderate attached fat. The serosa is crow-pink with focal attached exudate. Sectioning reveals a partially obliterated lumen. The wall of the appendix averages 0.1 cm in thickness. [employer] sections are submitted in one cassette. /11/13/2016 saudi11/13/2016
== END 2016-11-14 13:00 | disposition home or self-care (01) ==
LOC: JER 02:22 → UNDOADMIN 08:01 → SUATTDRO 08:01 → JASUSAT 08:01 → JERBED 08:01 → J8W 15:08 → JASUSAT 11-14 13:00
PROVIDERS: ATTEND Internal Medicine
PROC: 0DTJ4ZZ Resection of Appendix, Percutaneous Endoscopic Approach (ICD-10-PCS; principal; 2016-11-13 10:30)
DX: K35.80 Unspecified acute appendicitis (principal)
CPT/HCPCS: 36415; 72125-TC; 74177-TC; 80053; 83690; 85025; 86850; 86900; 86901; 88304-TC; 94760; 99282-25; J1644

== ENCOUNTER 2017-06-23 08:41 | Emergency (ER) | payer OTHER ==
[2017-06-23 08:47] VITALS: BP 139/77; PULSE 71; TEMP 98.2; BMI 30.7
--- NOTE | 2017-06-23 09:01 | PDOC ---
History of Present Illness - General Chief Complaint: Pain Stated Complaint: LT SHOULDER PAIN Time Seen by Provider: 06/23/17 08:54 History Source: Patient Exam Limitations: No Limitations - History of Present Illness Initial Comments: 06/23/17 09:49 Patient here with complaints of intermittent left shoulder pain over 1 year. States the past couple days has progressively worsened and is uncertain as to cause of re-exacerbation. Was seen here a year ago and treated for torticollis with cyclobenzaprine and NSAIDs. States pain has been remittent and that medications seem to help him. Patient did not follow up with orthopedist at the time. Denies any recent injury, any significant trauma, no heavy lifting or strenuous activity. Is a school manager. Denies fever, chest pain or palpitations, cough shortness of breath, no other medical symptoms with this pain. Occurred: reports: just prior to arrival Severity: reports: mild, moderate Pain Location: reports: upper extremity (left shoulder) Associated Symptoms (Fall): denies symptoms Past History - Travel Traveled outside of the country in the last 30 days: No Close contact w/someone who was outside of country & ill: No - Past Medical History Allergies/Adverse Reactions: Allergies Allergy/AdvReac Type Severity Reaction Status Date / Time No Known Allergies Allergy Verified 06/23/17 08:46 Home Medications: Ambulatory Orders Cyclobenzaprine HCl [Flexeril 10 mg] 10 mg PO BID PRN #14 tablet 06/23/17 Ibuprofen 400 mg PO Q6H PRN #30 tablet 06/23/17 Anemia: No Asthma: No Cancer: No Cardiac Disorders: No CVA: No COPD: No CHF: No Dementia: No Diabetes: No GI Disorders: No Disorders: No HTN: No Hypercholesterolemia: No Liver Disease: No Seizures: No Thyroid Disease: No - Surgical History Abdominal Surgery: No Appendectomy: Yes Cardiac Surgery: No Cholecystectomy: No Lung Surgery: No Neurologic Surgery: No Orthopedic Surgery: No - Immunization History Immunization Up to Date: No - Suicide/Smoking/Psychosocial Hx Smoking Status: No Smoking History: Never smoked Have you smoked in the past 12 months: Yes Number of Cigarettes Smoked Daily: 2 Cigars Per Day: 2 'Breaking Loose' booklet given: 11/13/16 Hx Alcohol Use: Yes (social) Drug/Substance Use Hx: No Substance Use Type: Alcohol, Marijuana Hx Substance Use Treatment: No Trauma Specific PMHX - Complaint Specific PMHX Back Injury: No Neck Injury: No (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, uses left hand) Review of Systems - Review of Systems Able to Perform ROS?: Yes Is the patient limited Kiswahili proficient: Yes Constitutional: Yes: Symptoms Reported, See HPI, Malaise Musculoskeletal: Yes: Symptoms Reported, See HPI, Joint Swelling All Other Systems: Reviewed and Negative *Physical Exam - Vital Signs Last Vital Signs Temp Pulse Resp BP Pulse Ox 98.2 F 71 18 139/77 98 06/23/17 08:43 06/23/17 08:43 06/23/17 08:43 06/23/17 08:43 06/23/17 08:43 - Physical Exam General Appearance: Yes: Nourished, Appropriately Dressed, Apparent Distress HEENT: positive: ALLAN, TMs Normal, Pharynx Normal Neck: positive: Tender, Supple, Other (patient with palpable mild spasm noted to the sternocleidomastoid insertions at the inferior aspect on left side worse than right, with reproduce tenderness to left shoulder with point tenderness at insertion and triggerpoints. Range of motion is mildly limited secondary to this reproduced spasm with abduction past 90. Has strong flexion and extension at elbow and strong grasp, neurovascular intact to hand. No bone tenderness crepitus or step-offs.). negative: Lymphadenopathy (R), Lymphadenopathy (L) Respiratory/Chest: positive: Lungs Clear, Normal Breath Sounds. negative: Chest Tender Cardiovascular: positive: Regular Rhythm Musculoskeletal: positive: Normal Inspection, Muscle Spasm. negative: Vertebral Tenderness Extremity: positive: Normal Capillary Refill. negative: Normal Inspection Integumentary: positive: Normal Color, Dry, Warm Neurologic: positive: transportation specialist II-XII NML intact, Fully Oriented, Alert, Normal Mood/ Affect, Normal Response, Motor Strength 5/5 Progress Note - Progress Note Progress Note: Review exacerbation of left shoulder and chronic neck strain. Will use cyclobenzaprine and NSAIDs have follow up with Orth O *DC/Admit/Observation/Transfer Diagnosis at time of Disposition: Strain of left shoulder Qualifiers: Encounter type: initial encounter Qualified Code(s): S46.912A - Strain of unspecified muscle, fascia and tendon at shoulder and upper arm level, left arm , initial encounter - Discharge Dispostion Disposition: HOME Condition at time of disposition: Stable Admit: No - Prescriptions Prescriptions: Cyclobenzaprine HCl [Flexeril 10 mg] 10 mg PO BID PRN #14 tablet PRN Reason: spasm Ibuprofen 400 mg PO Q6H PRN #30 tablet PRN Reason: Pain - Referrals Referrals: Antwon Torrez MD [Staff Physician] - - Patient Instructions Additional Instructions: Rest, no heavy lifting or exercise until pain is resolved Hot soaks to neck and low back as often as possible/hot showers or Jacuzzis No massage or therapy until spasm is gone Continue ibuprofen 2-200 mg tablets every 6 hours for the next 3 days then as needed for pain and swelling Cyclobenzaprine 1-10mg every 8 hours as needed for spasm If not significant improvement within 24 hours with medication and rest regime, followup with private physician for change in medications and /or therapy. - Post Discharge Activity Forms/Work/School Notes: Back to Work
[2017-06-23] MEDS ORDERED: IBUPROFEN 600 MG TABLET (FP) PO ONE ×2 (09:43→09:47)
== END 2017-06-23 10:03 | disposition home or self-care (01) ==
LOC: JERFT 08:41
DX: S46.912A Strain of unspecified muscle, fascia and tendon at shoulder and upper arm level, left arm, initial encounter (principal); X58.XXXA Exposure to other specified factors, initial encounter; Y93.89 Activity, other specified; Y92.9 Unspecified place or not applicable
CPT/HCPCS: 99281-25

== ENCOUNTER 2017-07-27 10:40 | Emergency (ER) | payer OTHER ==
[2017-07-27 10:45] VITALS: BMI 30.1
--- NOTE | 2017-07-27 12:34 | PDOC ---
History of Present Illness <Freda Hanks - Last Filed: 07/27/17 13:33> - History of Present Illness Initial Comments: 07/27/17 13:27 31-year-old male with a history of appendectomy presents with 4 days of left lower quadrant pain. The patient reports he now also intermittently has right lower quadrant pain. He denies any associated symptoms of nausea, vomiting, diarrhea, constipation, fevers, chills. He reports a normal bowel movement last night. There are no exacerbating or relieving symptoms. Use never had similar pain in the past. He has not tried any treatments. Denies any bulging masses, pain is not worse when he sneezes or bears down. Denies recent travel. Denies headache, focal weakness or numbness, chest pain, shortness of breath, lower extremity edema. <Cecilia Heart - Last Filed: 07/27/17 18:56> - General Chief Complaint: Pain Stated Complaint: ABD PAIN Time Seen by Provider: 07/27/17 12:01 Past History <Freda Hanks - Last Filed: 07/27/17 13:33> - Past Medical History Anemia: No Asthma: No Cancer: No Cardiac Disorders: No CVA: No COPD: No CHF: No Dementia: No Diabetes: No GI Disorders: No Disorders: No HTN: No Hypercholesterolemia: No Liver Disease: No Seizures: No Thyroid Disease: No - Surgical History Abdominal Surgery: No Appendectomy: Yes Cardiac Surgery: No Cholecystectomy: No Lung Surgery: No Neurologic Surgery: No Orthopedic Surgery: No - Immunization History Immunization Up to Date: No - Suicide/Smoking/Psychosocial Hx Smoking Status: No Smoking History: Never smoked Have you smoked in the past 12 months: Yes Number of Cigarettes Smoked Daily: 2 Cigars Per Day: 2 Information on smoking cessation initiated: No 'Breaking Loose' booklet given: 07/27/17 Hx Alcohol Use: Yes (occasional) Drug/Substance Use Hx: No Substance Use Type: Alcohol, Marijuana Hx Substance Use Treatment: No <Cecilia Heart - Last Filed: 07/27/17 18:56> - Past Medical History Allergies/Adverse Reactions: Allergies Allergy/AdvReac Type Severity Reaction Status Date / Time No Known Allergies Allergy Verified 07/27/17 10:45 Home Medications: Ambulatory Orders Ciprofloxacin [Cipro -] 500 mg PO Q12H #14 tablet 07/27/17 Review of Systems - Review of Systems Able to Perform ROS?: Yes Comments:: 07/27/17 13:23 GENERAL/CONSTITUTIONAL: No fever or chills. No weakness. HEAD, EYES, EARS, NOSE AND THROAT: No change in vision. No ear pain or discharge. No sore throat. GASTROINTESTINAL: (+) Abdominal pain. No nausea, vomiting, diarrhea or constipation. GENITOURINARY: No dysuria, frequency, or change in urination. CARDIOVASCULAR: No chest pain or shortness of breath. RESPIRATORY: No cough, wheezing, or hemoptysis. MUSCULOSKELETAL: No joint or muscle swelling or pain. No neck or back pain. SKIN: No rash NEUROLOGIC: No headache, vertigo, loss of consciousness, or change in strength/ sensation. ENDOCRINE: No increased thirst. No abnormal weight change. HEMATOLOGIC/LYMPHATIC: No anemia, easy bleeding, or history of blood clots. ALLERGIC/IMMUNOLOGIC: No hives or skin allergy. <Freda Hanks - Last Filed: 07/27/17 13:33> *Physical Exam - Vital Signs Last Vital Signs Temp Pulse Resp BP Pulse Ox 98.5 F 63 19 135/79 97 07/27/17 10:43 07/27/17 10:43 07/27/17 10:43 07/27/17 10:43 07/27/17 10:43 - Physical Exam Comments: 07/27/17 13:23 GENERAL: Awake, alert, and fully oriented, in no acute distress HEAD: No signs of trauma EYES: PERRLA, EOMI, sclera anicteric, conjunctiva clear ENT: Auricles normal inspection, hearing grossly normal, nares patent, oropharynx clear without exudates. Moist mucosa NECK: Normal ROM, supple, no lymphadenopathy, JVD, or masses LUNGS: Breath sounds equal, clear to auscultation bilaterally. No wheezes, and no crackles HEART: Regular rate and rhythm, normal S1 and S2, no murmurs, rubs or gallops ABDOMEN: (+) LLQ tenderness. (+) No distension. (+) No CVA tenderness. Soft, normoactive bowel sounds. No guarding, no rebound. No masses EXTREMITIES: Normal range of motion, no edema. No clubbing or cyanosis. No cords , erythema, or tenderness BACK: No midline spinal tenderness in cervical/thoracic/lumbar region NEUROLOGICAL: Normal speech, cranial nerves intact, negative pronator drift, 5/ 5 strength in all 4 extremities, normal sensation to light touch in all 4 extremities, normal cerebellar exam, normal gait, normal reflexes and tone SKIN: Warm, Dry, normal turgor, no rashes or lesions noted. <Freda Hanks - Last Filed: 07/27/17 13:33> - Vital Signs Last Vital Signs Temp Pulse Resp BP Pulse Ox 98.5 F 63 19 135/79 97 07/27/17 10:43 07/27/17 10:43 07/27/17 10:43 07/27/17 10:43 07/27/17 10:43 <Cecilia Heart - Last Filed: 07/27/17 18:56> ED Treatment Course - LABORATORY CBC & Chemistry Diagram: 07/27/17 13:10 07/27/17 13:10 <Freda Hanks - Last Filed: 07/27/17 13:33> - LABORATORY CBC & Chemistry Diagram: 07/27/17 13:10 07/27/17 13:10 <Cecilia Heart - Last Filed: 07/27/17 18:56> Medical Decision Making - Medical Decision Making 07/27/17 13:28 32-year-old male history of appendectomy presents with bilateral lower abdominal pain w/o associated blood stools, diarrhea, N/V, fevers, chills. Vitals unremarkable. Exam with left lower quadrant tenderness palpation. Differential includes but is not limited to diverticulitis versus colitis versus UTI. Will obtain blood work, urinalysis and CT scan with IV contrast and reassess. Patient currently declines pain medication. 07/27/17 16:40 Labs/UA unremarkable. CT with evidence of recurrent colitis. Discussed results with patient and asked if he had similar symptoms in the past and he recalls having previous similar lower abdominal pain that resolves on its own. The patient has never seen a electronics test engineer for the symptoms. Patient currently denies any pain and on repeat abdominal exam has no tenderness to palpation. He is also currently eating chicken and rice and is tolerating PO. I recommended that he follow up with a electronics test engineer in case this is inflammatory colitis , although he denies any history of bloody stools. He is in agreement with the plan. He requests to go home. I discussed the physical exam findings, ancillary test results and final diagnoses with the patient. I answered all of the patient's questions. The patient was satisfied with the care received and felt comfortable with the discharge plan and treatment plan. The patient will call their primary care physician within 24 hours to arrange follow-up and will return to the Emergency Department with any new, persistent or worsening symptoms. <Cecilia Heart - Last Filed: 07/27/17 18:56> *DC/Admit/Observation/Transfer - Attestations Scribe Attestion: 07/27/17 13:24 Documentation prepared by Freda Hanks, acting as associate medical director for Cecilia Heart MD. <Freda Hanks - Last Filed: 07/27/17 13:33> - Discharge Dispostion Admit: No - Attestations Physician Attestion: 07/27/17 16:45 I, Dr. Cecilia Heart MD, attest that this document has been prepared under my direction and personally reviewed by me in its entirety. I further attest, that it accurately reflects all work, treatment, procedures and medical decision -making performed by me. <Cecilia Heart - Last Filed: 07/27/17 18:56> Diagnosis at time of Disposition: Colitis - Discharge Dispostion Disposition: HOME Condition at time of disposition: Stable - Prescriptions Prescriptions: Ciprofloxacin [Cipro -] 500 mg PO Q12H #14 tablet - Referrals Referrals: Lewis Gimenez MD [Staff Physician] - - Patient Instructions Printed Discharge Instructions: DI for Colitis Additional Instructions: Follow-up with your primary care doctor within 2-[address] Gimenez's office to make a follow-up appointment with a electronics test engineer within 1 week. Return to the emergency department if you have any new, worsening or concerning symptoms. - Post Discharge Activity Forms/Work/School Notes: Back to Work
[2017-07-27 13:24] LABS: BASO % 0.8 % (0-2.0); HEMATOCRIT 47.5 % (35.4-49); HEMOGLOBIN 15.9 GM/dL (11.7-16.9); LYMPH % 25.7 % (8-40); MCH 32.9 pg (25.7-33.7); MCHC 33.5 g/dl (32.0-35.9); MEAN CELL VOLUME 98.1 fl (80-96); MONO % 14.6 % (3.8-10.2); NEUT % 54.9 % (42.8-82.8); PLATELET COUNT 246 K/MM3 (134-434); RBC 4.84 M/mm3 (4.00-5.60); RDW 13.5 % (11.9-15.9); WHITE BLOOD COUNT 9.1 K/mm3 (4.0-10.0)
[2017-07-27 13:41] LABS: ALBUMIN 3.8 g/dl (3.4-5.0); ANION GAP 9 (8-16); BLOOD UREA NITROGEN 11 mg/dL (7-18); CALCIUM 8.9 mg/dL (8.5-10.1); CHLORIDE 107 mmol/L (98-107); CO2 24 mmol/L (21-32); GLUCOSE,RANDOM 91 mg/dL (74-106); POTASSIUM 4.5 mmol/L (3.5-5.1); SGPT/ALT 98 U/L (12-78); SODIUM 140 mmol/L (136-145)
[2017-07-27 13:44] LABS: ALK PHOS 84 U/L (45-117); BILIRUBIN,TOTAL 1.1 mg/dL (0.2-1.0); CREATININE 0.9 mg/dL (0.7-1.3); SGOT/AST 40 U/L (15-37); TOT PROT 7.1 g/dl (6.4-8.2)
[2017-07-27 15:07] LABS: URINE APPEARANCE CLEAR; URINE BILIRUBIN NEGATIVE (NEGATIVE); URINE BLOOD NEGATIVE (NEGATIVE); URINE COLOR YELLOW; URINE GLUCOSE (UA) NEGATIVE (NEGATIVE); URINE KETONE NEGATIVE (NEGATIVE); URINE LEUK ESTERASE NEGATIVE (NEGATIVE); URINE NITRITE NEGATIVE (NEGATIVE); URINE PROTEIN NEGATIVE (NEGATIVE)
[2017-07-27 17:18] VITALS: BP 112/75; PULSE 69; TEMP 98
== END 2017-07-27 17:18 | disposition home or self-care (01) ==
LOC: JER 10:40
DX: K52.9 Noninfective gastroenteritis and colitis, unspecified (principal); F17.210 Nicotine dependence, cigarettes, uncomplicated
CPT/HCPCS: 36415; 74177-TC; 80053; 81003; 83690; 85025; 87086; 99283-25

== ENCOUNTER 2017-11-25 08:30 | Emergency (ER) | payer SELFPAY ==
[2017-11-25 08:35] VITALS: BP 127/82; PULSE 59; TEMP 98.6; BMI 30.7
--- NOTE | 2017-11-25 08:58 | PDOC ---
History of Present Illness - General Chief Complaint: Injury Stated Complaint: LT TOE INJURY Time Seen by Provider: 11/25/17 08:36 History Source: Patient Exam Limitations: No Limitations - History of Present Illness Initial Comments: 11/25/17 08:55 c/o left toe injury stubbed it on the wood leg of couch last night. no pain meds taken. Occurred: reports: yesterday Severity: reports: mild Past History - Past Medical History Allergies/Adverse Reactions: Allergies Allergy/AdvReac Type Severity Reaction Status Date / Time No Known Allergies Allergy Verified 11/25/17 08:31 Home Medications: Ambulatory Orders Ciprofloxacin [Cipro -] 500 mg PO Q12H #14 tablet 07/27/17 Anemia: No Asthma: No Cancer: No Cardiac Disorders: No CVA: No COPD: No CHF: No Dementia: No Diabetes: No GI Disorders: No Disorders: No HTN: No Hypercholesterolemia: No Liver Disease: No Seizures: No Thyroid Disease: No Other medical history: DENIES. - Surgical History Abdominal Surgery: No Appendectomy: Yes Cardiac Surgery: No Cholecystectomy: No Lung Surgery: No Neurologic Surgery: No Orthopedic Surgery: No - Immunization History Immunization Up to Date: No - Suicide/Smoking/Psychosocial Hx Smoking Status: No Smoking History: Current some day smoker Have you smoked in the past 12 months: Yes Number of Cigarettes Smoked Daily: 2 Cigars Per Day: 2 Information on smoking cessation initiated: No 'Breaking Loose' booklet given: 07/27/17 Hx Alcohol Use: Yes (occasional) Drug/Substance Use Hx: No Substance Use Type: Alcohol, Marijuana Hx Substance Use Treatment: No Trauma Specific PMHX - Complaint Specific PMHX Back Injury: No Neck Injury: No (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, uses left hand) Review of Systems - Review of Systems Comments:: 11/25/17 08:56 left toe pain swelling and bruising third toe *Physical Exam - Vital Signs Last Vital Signs Temp Pulse Resp BP Pulse Ox 98.6 F 59 L 19 127/82 97 11/25/17 08:32 11/25/17 08:32 11/25/17 08:32 11/25/17 08:32 11/25/17 08:32 - Physical Exam Extremity: positive: Normal Capillary Refill, Other (left third toe with ecymosis, no swelling no deformity nv intact) Neurologic: positive: Fully Oriented, Alert, Normal Mood/Affect, Normal Response , Motor Strength 11/06 ED Treatment Course - RADIOLOGY Radiology Studies Ordered: Category Date Time Status TOE(S) LEFT [RAD] Stat Radiology 11/25/17 08:36 Ordered Medical Decision Making - Medical Decision Making 11/25/17 08:55 cc: toe injury last night will xray to r/o fracture bruising noted. *DC/Admit/Observation/Transfer Diagnosis at time of Disposition: Toe injury Qualifiers: Encounter type: initial encounter Laterality: left Qualified Code(s): S99.922A - Unspecified injury of left foot, initial encounter - Discharge Dispostion Disposition: HOME Condition at time of disposition: Good - Referrals Referrals: Lance Lockwood MD [Staff Physician] - - Patient Instructions Additional Instructions: keep toe efra taped for 1-2 weeks apply ice every 2hrs for 20 minutes for the next day while awake take advil for pain as needed or ibuprofen follow with the sales warehouse driver for follow up next week if pain worsens - Post Discharge Activity Forms/Work/School Notes: Back to Work
== END 2017-11-25 09:25 | disposition home or self-care (01) ==
LOC: JERFT 08:30
DX: S90.122A Contusion of left lesser toe(s) without damage to nail, initial encounter (principal); W22.03XA Walked into furniture, initial encounter; Y93.89 Activity, other specified; Y92.038 Other place in apartment as the place of occurrence of the external cause; Y99.8 Other external cause status
CPT/HCPCS: 73660-TC-FY; 99281-25

== ENCOUNTER 2017-12-26 19:15 | Emergency (ER) | payer SELFPAY ==
--- NOTE | 2017-12-26 19:28 | PDOC ---
History of Present Illness - General Stated Complaint: STOMACH PAIN Time Seen by Provider: 12/26/17 19:28 - History of Present Illness Initial Comments: 12/26/17 19:38 Mr. Garcia is a 32 yo male w/ pmh of appendectomy who presents for evaluation of 1 day history of N/V w/ abdominal pain. Patient reports he was drinking all weekend and consumed a bottle of hard liquor. He reports he woke up this morning vomiting which had initially made him feel better, but around 4 or 5 this afternoon started to have nausea with vomiting again and generalized abdominal pain. The patient denies chest pain, shortness of breath, headache and dizziness. Denies fever, chills, nausea, vomit, diarrhea and constipation. Denies dysuria, frequency, urgency and hematuria. Allergies:NKDA Past History - Past Medical History Allergies/Adverse Reactions: Allergies Allergy/AdvReac Type Severity Reaction Status Date / Time No Known Allergies Allergy Verified 12/26/17 20:47 Anemia: No Asthma: No Cancer: No Cardiac Disorders: No CVA: No COPD: No CHF: No Dementia: No Diabetes: No GI Disorders: No Disorders: No HTN: No Hypercholesterolemia: No Liver Disease: No Seizures: No Thyroid Disease: No - Surgical History Abdominal Surgery: No Appendectomy: Yes Cardiac Surgery: No Cholecystectomy: No Lung Surgery: No Neurologic Surgery: No Orthopedic Surgery: No - Immunization History Immunization Up to Date: No - Suicide/Smoking/Psychosocial Hx Smoking Status: No Smoking History: Current some day smoker Have you smoked in the past 12 months: Yes Number of Cigarettes Smoked Daily: 2 Cigars Per Day: 2 'Breaking Loose' booklet given: 07/27/17 Hx Alcohol Use: Yes (occasional) Drug/Substance Use Hx: No Substance Use Type: Alcohol, Marijuana Hx Substance Use Treatment: No Review of Systems - Review of Systems Comments:: 12/26/17 20:31 GENERAL/CONSTITUTIONAL: No fever or chills. No weakness. HEAD, EYES, EARS, NOSE AND THROAT: No change in vision. No ear pain or discharge. No sore throat. CARDIOVASCULAR: No chest pain or shortness of breath RESPIRATORY: No cough, wheezing, or hemoptysis. GASTROINTESTINAL: +N/V as described (approximately 3 episodes) w/ generalized abdominal pain. No diarrhea or constipation. GENITOURINARY: No dysuria, frequency, or change in urination. MUSCULOSKELETAL: No joint or muscle swelling or pain. No neck or back pain. SKIN: No rash NEUROLOGIC: No headache, vertigo, loss of consciousness, or change in strength/ sensation. ENDOCRINE: No increased thirst. No abnormal weight change HEMATOLOGIC/LYMPHATIC: No anemia, easy bleeding, or history of blood clots. ALLERGIC/IMMUNOLOGIC: No hives or skin allergy. *Physical Exam - Physical Exam Comments: 12/26/17 20:31 GENERAL: Awake, alert, and fully oriented, in no acute distress HEAD: No signs of trauma, normocephalic, atraumatic EYES: PERRLA, EOMI, sclera anicteric, conjunctiva clear ENT: Auricles normal inspection, hearing grossly normal, nares patent, oropharynx clear without exudates. Moist mucosa NECK: Normal ROM, supple, no lymphadenopathy, JVD, or masses LUNGS: No distress, speaks full sentences, clear to auscultation bilaterally HEART: Regular rate and rhythm, normal S1 and S2, no murmurs, rubs or gallops, peripheral pulses normal and equal bilaterally. ABDOMEN: +Generalized distractable abdominal pain. Soft, normoactive bowel sounds. No guarding, no rebound. No masses EXTREMITIES: Normal inspection, Normal range of motion, no edema. No clubbing or cyanosis. NEUROLOGICAL: Cranial nerves II through XII grossly intact. Normal speech, normal gait, no focal sensorimotor deficits SKIN: Warm, Dry, normal turgor, no rashes or lesions noted. ED Treatment Course - LABORATORY CBC & Chemistry Diagram: 12/26/17 20:00 12/26/17 20:00 Medical Decision Making - Medical Decision Making 12/26/17 20:32 Mr. Garcia is a 32 yo male w/ pmh as described who presents for evaluation of symptoms c/w gastritis. Symptomatic relief given w/ basic labs +lipase sent for evaluation. 12/27/17 00:46 Labs grossly unconcerning as below. Patient reporting relief from symptoms after maalox, pepcid, zofran, and fluids. Discharging to home. *DC/Admit/Observation/Transfer Diagnosis at time of Disposition: Nausea & vomiting Qualifiers: Vomiting type: unspecified Vomiting Intractability: non-intractable Qualified Code(s): R11.2 - Nausea with vomiting, unspecified Gastritis Qualifiers: Gastritis type: unspecified gastritis Chronicity: unspecified Gastritis bleeding: without bleeding Qualified Code(s): K29.70 - Gastritis, unspecified, without bleeding - Discharge Dispostion Disposition: HOME Condition at time of disposition: Stable - Referrals - Patient Instructions Printed Discharge Instructions: DI for Lilliana-Rivera Syndrome, DI for Alcoholic Gastritis Additional Instructions: Follow up with your primary doctor within 1-2 days. Return to the emergency department if you have any new, worsening, or concerning symptoms. - Post Discharge Activity Forms/Work/School Notes: Back to Work
[2017-12-26 19:35] VITALS: BP 134/93; PULSE 97; TEMP 98.6; BMI 28.8
[2017-12-26] MEDS ORDERED: SODIUM CHLORIDE 1,000 ML IV STA ×2 (19:37→20:58)
[2017-12-26] MEDS ORDERED: ONDANSETRON 4 MG/2 ML VIAL IVPUSH ONE (19:37)
[2017-12-26] MEDS ORDERED: FAMOTIDINE 20 MG/50 ML IVPB 20 MG/50 ML MG IVPB ONE (19:37)
[2017-12-26 20:08] LABS: BASO % 0.6 % (0-2.0); LYMPH % 14.2 % (8-40); MCH 32.5 pg (25.7-33.7); MCHC 34.1 g/dl (32.0-35.9); MEAN CELL VOLUME 95.4 fl (80-96); MEAN PLT VOLUME 8.3 fl (7.5-11.1); MONO % 11.6 % (3.8-10.2); NEUT % 69.6 % (42.8-82.8); PLATELET COUNT 264 K/MM3 (134-434); RBC 5.24 M/mm3 (4.00-5.60); RDW 13.7 % (11.9-15.9); WHITE BLOOD COUNT 9.7 K/mm3 (4.0-10.0)
--- NOTE | 2017-12-26 20:27 | PDOC ---
Attending Attestation - Resident Resident Name: Phuc Heard - ED Attending Attestation I have performed the following: I have examined & evaluated the patient, The case was reviewed & discussed with the resident, I agree w/resident's findings & plan, Exceptions are as noted - HPI HPI: 12/26/17 20:26 32yo M hx appendicitis presents to the ED with diffuse abd pain a/w 3 episodes of emesis. Pt reports he drank 1L hard liquor yesterday and this morning felt "hungover." Pt reports pain is worse over the epigastric area. He reports his vomit was initially NBNB but he noticed a streak of red blood during the last episode, prompting him to come to the ED. He tried zantac for his sxs but then threw it up. He currently feels better post antiemetics. Denies F/C, cp, sob, headache, dyrsuria, hematuria, frequency, diarrhea. Last BM this AM was normal, non bloody. - Physicial Exam PE: 12/26/17 22:08 GENERAL: Awake, alert, and fully oriented, in no acute distress HEAD: No signs of trauma EYES: PERRLA, EOMI, sclera anicteric, conjunctiva clear ENT: Auricles normal inspection, hearing grossly normal, nares patent, oropharynx clear without exudates. Moist mucosa NECK: Normal ROM, supple, no lymphadenopathy, JVD, or masses LUNGS: Breath sounds equal, clear to auscultation bilaterally. No wheezes, and no crackles HEART: Regular rate and rhythm, normal S1 and S2, no murmurs, rubs or gallops ABDOMEN: Soft, mild epigastric ttp, normoactive bowel sounds. No guarding, no rebound. No masses EXTREMITIES: Normal range of motion, no edema. No clubbing or cyanosis. No cords , erythema, or tenderness BACK: No midline spinal tenderness in cervical/thoracic/lumbar region NEUROLOGICAL: Normal speech, cranial nerves intact, negative pronator drift, 5/ 5 strength in all 4 extremities, normal sensation to light touch in all 4 extremities, normal cerebellar exam, normal gait SKIN: Warm, Dry, normal turgor, no rashes or lesions noted. - Medical Decision Making 12/26/17 20:39 32yo M presents to the ED with diffuse abd pain, vomiting with BRB streak x1 towards the end of vomiting. Pt was binge drinking yesterday (does not drink daily, only on the weekends). Vitals wnl. +epigastric ttp on exam. Likely etoh gastritis with lilliana rivera tear but will check labs for pancreatitis vs cholecystitis, treat sxs and reassess. 12/26/17 21:09 Labs with elevated hgb/hct likely 2/2 dehydration. Pt ordered for 2nd liter. WIll see if he is tolerating PO 12/26/17 22:19 previously had recurrent epigastric pain and was given pantoproazole and maalox. Rpt abd exam with no ttp. 12/27/17 00:31 Tolerating PO, no longer has pain. Repeat abd exam benign. Likely alcoholic gastritis. Pt requesting work note, will give work note for tomorrow. Requests DC home. I discussed the physical exam findings, ancillary test results and final diagnoses with the patient. I answered all of the patient's questions. The patient was satisfied with the care received and felt comfortable with the discharge plan and treatment plan. The patient will call their primary care physician within 24 hours to arrange follow-up and will return to the Emergency Department with any new, persistent or worsening symptoms. Discharge Disposition - Diagnosis Gastritis Nausea & vomiting Qualifiers: Vomiting type: unspecified Vomiting Intractability: non-intractable Qualified Code(s): R11.2 - Nausea with vomiting, unspecified - Discharge Dispostion Disposition: HOME Condition at time of disposition: Stable Decision to Admit order: No - Referrals - Patient Instructions Printed Discharge Instructions: DI for Lilliana-Rivera Syndrome, DI for Alcoholic Gastritis Additional Instructions: Follow up with your primary doctor within 1-2 days. Return to the emergency department if you have any new, worsening, or concerning symptoms. - Post Discharge Activity Work/School Note: Back to Work
[2017-12-26 20:32] LABS: ALBUMIN 4.4 g/dl (3.4-5.0); ALK PHOS 99 U/L (45-117); ANION GAP 8 (8-16); BILIRUBIN,TOTAL 0.8 mg/dL (0.2-1.0); BLOOD UREA NITROGEN 13 mg/dL (7-18); CALCIUM 9.5 mg/dL (8.5-10.1); CHLORIDE 108 mmol/L (98-107); CO2 26 mmol/L (21-32); GLUCOSE,RANDOM 92 mg/dL (74-106); LIPASE 93 U/L (73-393); SGPT/ALT 68 U/L (12-78); SODIUM 142 mmol/L (136-145); TOT PROT 7.8 g/dl (6.4-8.2)
[2017-12-26 21:57] LABS: PLATELET ESTIMATE ADEQUATE
[2017-12-26] MEDS ORDERED: PANTOPRAZOLE SODIUM 40 MG VIAL IVPUSH ONE (22:29)
[2017-12-26] MEDS ORDERED: MAG HYDROX/AL HYDROX/SIMETH 30 ML UNIT-DOSE CUP PO ONE (22:29)
[2017-12-26 22:56] LABS: POTASSIUM 4.4 mmol/L (3.5-5.1); SGOT/AST 44 U/L (15-37)
== END 2017-12-27 01:12 | disposition home or self-care (01) ==
LOC: JER 19:15
PROC: 3E0337Z Introduction of Electrolytic and Water Balance Substance into Peripheral Vein, Percutaneous Approach (ICD-10-PCS; principal; 2017-12-26)
PROC: 3E033GC Introduction of Other Therapeutic Substance into Peripheral Vein, Percutaneous Approach (ICD-10-PCS; 2017-12-26)
PROC: 3E033GC Introduction of Other Therapeutic Substance into Peripheral Vein, Percutaneous Approach (ICD-10-PCS; 2017-12-26)
PROC: 3E033GC Introduction of Other Therapeutic Substance into Peripheral Vein, Percutaneous Approach (ICD-10-PCS; 2017-12-26)
DX: K29.70 Gastritis, unspecified, without bleeding (principal)
CPT/HCPCS: 36415; 80053; 83690; 85025; 99282-25; J7030

== ENCOUNTER 2018-10-05 08:13 | Emergency (ER) | payer SELFPAY ==
[2018-10-05 08:18] VITALS: TEMP 98.2; BMI 30.7
[2018-10-05] MEDS ORDERED: MAG HYDROX/AL HYDROX/SIMETH 30 ML UNIT-DOSE CUP PO ONE (09:06)
[2018-10-05] MEDS ORDERED: LIDOCAINE VISCOUS 2% ORAL/TOP 100 ML BOTTLE MM ONE (09:06)
--- NOTE | 2018-10-05 09:06 | PDOC ---
History of Present Illness - General Chief Complaint: Pain Stated Complaint: ABD PAIN Time Seen by Provider: 10/05/18 08:50 History Source: Patient Exam Limitations: No Limitations - History of Present Illness Initial Comments: HPI: 33 y/o male presenting to [facility] ER complaining of worsening of left upper quadrant abdominal pain since last . Pain is intermittent and nonradiating. Made better with eating and worse sometimes in the evening and laying flat. Endorses nausea without vomiting or diarrhea. No h/o of similar symptoms. States he has a h/o of GERD, which he manages with OTC Zantac. Last used this morning. Denies frequent use of NSAIDS. Denies ever undergoing EGD. PCP: None Social Hx: - EtOH: Endorses increased usage over the past few weeks. Now using approx. 3 liquor drinks per day. - Tobacco: Occasional cigar smoker - Street Drugs: Denies Medical Hx: - Pt denies past medical history. Denies prescription medications. Surgical Hx: -Appendectomy Past History - Past Medical History Allergies/Adverse Reactions: Allergies Allergy/AdvReac Type Severity Reaction Status Date / Time No Known Allergies Allergy Verified 10/05/18 08:14 Home Medications: Ambulatory Orders NK [No Known Home Medication] 10/05/18 Anemia: No Asthma: No Cancer: No Cardiac Disorders: No CVA: No COPD: No CHF: No Dementia: No Diabetes: No GI Disorders: No Disorders: No HTN: No Hypercholesterolemia: No Liver Disease: No Seizures: No Thyroid Disease: No - Surgical History Abdominal Surgery: No Appendectomy: Yes Cardiac Surgery: No Cholecystectomy: No Lung Surgery: No Neurologic Surgery: No Orthopedic Surgery: No - Immunization History Immunization Up to Date: No - Suicide/Smoking/Psychosocial Hx Smoking Status: No Smoking History: Current every day smoker Have you smoked in the past 12 months: Yes Number of Cigarettes Smoked Daily: 10 Cigars Per Day: 2 Information on smoking cessation initiated: No 'Breaking Loose' booklet given: 07/27/17 Hx Alcohol Use: Yes (DAILY) Drug/Substance Use Hx: No Substance Use Type: Alcohol, Marijuana Hx Substance Use Treatment: No Review of Systems - Review of Systems Able to Perform ROS?: Yes Comments:: In addition to that documented in the HPI above, the additional ROS was obtained : Constitutional: Denies fevers or chills Head: Denies vision changes ENMT: Denies sore throat CV: Denies chest pain Resp: Denies SOB GI: Denies vomiting or diarrhea : Denies painful urination, hematuria, penile discharge, or testicular pain MSK: Denies recent trauma Skin: Denies new rashes Neuro: Denies new numbness or tingling or weakness Endocrine: Denies polyuria Heme: Denies bleeding or bruising *Physical Exam - Vital Signs Last Vital Signs Temp Pulse Resp BP Pulse Ox 98.2 F 68 16 130/86 97 10/05/18 08:14 10/05/18 08:14 10/05/18 08:14 10/05/18 08:14 10/05/18 08:14 - Physical Exam Comments: Constitutional: Well-developed, well-nourished male in no acute distress but in obvious mild discomfort. Found semi-fowlers in hospital bed. Alert and oriented x4. Answered all questions appropriately and completely. Speech was non-labored , non-pressured. Observed walking through the department unassisted without difficulty. Head: Normocephalic. No obvious external signs of trauma. Eyes: Sclerae white. Ears: Hearing grossly intact. Nose: No nasal discharge. Throat: Oral cavity and pharynx normal. No inflammation, swelling, exudate, or lesions. Neck: Supple, trachea is midline. Cardiovascular / Chest: Regular rate and regular rhythm. No murmur, rubs, clicks, or gallops. Peripheral pulses: radial pulses full. Respiratory: Breathing unlabored. Equal chest rise and fall. Clear to auscultation bilaterally. No stridor, no wheezing, no rhonchi. Gastrointestinal: abdomen is tender in LUQ without rebound or guarding. Globally , abdomen is soft and non-distended. No hepatosplenemegaly. No pulsatile masses. No overlying skin lesions or obvious signs of trauma. Small post surgical scar in LLQ and above the umbilicus. Neuro: Alert and oriented. Moving all four extremities spontaneously. Gait normal. Skin: Warm, dry, and intact. No bruising, rashes, or other lesions. No palpable nodules. : No R or L CVA tenderness. Psych: Affect: appropriate. Mood: normal. ED Treatment Course - LABORATORY CBC & Chemistry Diagram: 10/05/18 10:30 10/05/18 10:30 - ADDITIONAL ORDERS Additional order review: 10/05/18 10:30 Sodium 139 Potassium 4.8 Chloride 106 Carbon Dioxide 28 Anion Gap 5 L BUN 8 Creatinine 1.2 Creat Clearance w eGFR 69.31 Random Glucose 99 Calcium 9.1 Phosphorus 2.5 Magnesium 2.1 Total Bilirubin 1.0 AST 43 H ALT 93 H Alkaline Phosphatase 87 Total Protein 7.1 Albumin 4.0 Lipase 118 10/05/18 10:30 RBC 4.83 MCV 98.7 H MCHC 34.2 RDW 13.3 MPV 7.9 Neutrophils % 56.5 Lymphocytes % 25.3 D Monocytes % 13.9 H Eosinophils % 3.6 Basophils % 0.7 - Medications Given in the ED: 10/05/18 14:11 ED Medications Discontinued Medications Generic Name Dose Route Start Last Admin Trade Name Magdi PRN Reason Stop Dose Admin Al Hydroxide/Mg Hydroxide 30 ml 10/05/18 09:06 10/05/18 09:30 Mylanta Oral Suspension - PO 10/05/18 09:07 30 ml ONCE ONE Administration Famotidine/Sodium Chloride 20 mg in 50 mls @ 100 mls/hr 10/05/18 09:24 09:30 Pepcid 20 Mg Premixed Ivpb - IVPB 10/05/18 09:53 100 mls/hr ONCE ONE Administration Lactated Ringer's 1,000 ml 10/05/18 09:23 10/05/18 09:30 Lactated Ringers Solution IV 10/05/18 09:24 1,000 ml ONCE ONE Administration Lidocaine HCl 15 ml 10/05/18 09:06 10/05/18 09:30 Xylocaine 2% Viscous MM 10/05/18 09:07 Not Given ONCE ONE Sucralfate 1 gm 10/05/18 09:20 10/05/18 09:30 Carafate Oral Suspension - PO 10/05/18 09:21 Not Given ONCE ONE Sucralfate 1 gm 10/05/18 10:17 10/05/18 09:30 Carafate - PO 10/05/18 10:18 1 gm NOW STA Administration Medical Decision Making - Medical Decision Making *Reviewed vital signs, nursing notes, and prior visit documentation (if available). 33 y/o male presenting with LUQ abdominal pain in setting of acutely increased EtOH intake. Afebrile. Vitals unremarkable for hypotension or tachycardia. Physical exam as described above. No peritoneal signs. Suspect alcoholic gastritis. Low suspicion for pancreatitis, cholecystitis, or hepatitis given pain description and location. Will obtain CBC, CMP, and Lipase. Ordered GI cocktail and IVFB. CBC unremarkable for leukocytosis. CMP unremarkable for significant electrolyte derangement. Mild LFT elevation. Will refer pt to PCP for outpatient f/u. Lipase not elevated. Repeat abdominal exam unchanged from initial. No peritoneal signs. Pt tolerated PO water and crackers. Continue to suspect alcoholic gastritis. Discussed physical exam findings and laboratory results with pt. Encouraged EtOH and NSAID abstinence. Answered all questions. Provided return precautions. Pt expressed verbal understanding and agreement with plan to discharge home with outpatient follow up. Provided GI and PCP referral. *DC/Admit/Observation/Transfer Diagnosis at time of Disposition: Left upper quadrant rebound abdominal tenderness, Elevated LFTs - Discharge Dispostion Disposition: HOME Condition at time of disposition: Good Decision to Admit order: No - Referrals Referrals: [facility] [place] [Provider Group] Bam Pool MD [Staff Physician] - - Patient Instructions Printed Discharge Instructions: DI for Alcohol Abuse, DI for Alcoholic Gastritis Additional Instructions: You were seen today for left sided abdominal pain. Your blood work showed a small elevation in your liver enzymes. This is not likely to be the cause of your pain. Your pain is likely irritation of your stomach from your increased alcohol intake. You should stop drinking and avoid taking NSAIDS (like Aspirin, Advil, Mortin, Aleve, or Naproxen). You should follow up with a primary care doctor to have your liver enzymes repeated. I have entered a referral for you to see a primary care physician at [facility] [place] [facility]. You will need to call to make an appointment in the next 2-4 days. The telephone number is [phone]. The address is: [facility] [place] [address] A copy of todays results are attached to this packet. Take it to the appointment so your doctor can review them. You can also follow up with a GI doctor. I have also placed a referral for you to see Dr. Pool. You will need to call to make an appointment. The number is included in this packet. Go to the nearest emergency department if your condition worsens or you feel like you need additional emergency evaluation. Print Language: SYRIAN - Post Discharge Activity Forms/Work/School Notes: Back to Work
[2018-10-05] MEDS ORDERED: SUCRALFATE 1 GM/10 ML UNIT DOSE CUPS PO ONE (09:20)
[2018-10-05] MEDS ORDERED: LACTATED RINGERS SOLUTION 1000 ML INFUS.BAG IV ONE (09:23)
[2018-10-05] MEDS ORDERED: FAMOTIDINE 20 MG/50 ML IVPB 20 MG/50 ML MG IVPB ONE ×2 (09:24→10:12)
--- NOTE | 2018-10-05 09:24 | PDOC ---
Attending Attestation - HPI HPI: 10/05/18 09:37 The patient is a 33-year-old male, with a past medical history of GERD, who presents to the ED with worsening LUQ pain that began on 09/29. The patient states that the pain is intermittent, nonradiating, alleviated with food consumption, exacerbated when laying flat, and accompanied by nausea. He denies any fevers, chills, vomiting, diarrhea, or constipation. Denies any chest pain or palpitations. Denies any urinary symptoms. Allergies: NKA Surgical History: Appendectomy Social History: Increased EtOH use over the past few weeks (3 drinks per day), occasional cigar use. <Malika Bermudez - Last Filed: 10/05/18 09:37> - Resident Resident Name: Lance Goldman - ED Attending Attestation I have performed the following: I have examined & evaluated the patient, The case was reviewed & discussed with the resident, I agree w/resident's findings & plan, Exceptions are as noted - Physicial Exam PE: 10/05/18 10:56 Patient is awake and alert, well-nourished, in no distress Normocephalic and atraumatic PERRLA, EOMI No scleral icterus CTA RRR Abdomen is soft, nondistended, minimal left upper quadrant is noted to deep palpation, no guarding or rebound, no CVA tenderness bilaterally - Medical Decision Making 10/05/18 10:56 33-year-old male with history of heavy L Heriberto use presents with atraumatic left upper quadrant pain for the past several days without associated nausea vomiting. Differential diagnoses includes local gastritis versus pancreatitis versus colitis. We'll obtain CBC/CMP. Will hydrate. We'll administer Carafate and Maalox. We'll administer H2 blockers. Will reassess. 10/05/18 12:42 Patient reassessed. Patient is resting comfortably, tolerates by mouth. CBC is within normal limit. CMP reveals minimally elevated AST/ALT (ALT greater than AST). No acute issues are present. Patient discharged with primary and GI follow -up. Repeat abdominal exam revealed no focal tenderness. Patient safe for outpatient follow-up. <Brian Joe - Last Filed: 10/05/18 12:42> Attestations - Attestations 10/05/18 09:37 Documentation prepared by Malika Bermudez, acting as medical billing specialist for Brian Joe MD. <Malika Bermudez - Last Filed: 10/05/18 09:37>
[2018-10-05] MEDS ORDERED: SUCRALFATE 1 GM TABLET (FP) ONE (10:12)
[2018-10-05] MEDS ORDERED: MAG HYDROX/AL HYDROX/SIMETH 30 ML UNIT-DOSE CUP ONE (10:12)
[2018-10-05] MEDS ORDERED: LIDOCAINE VISCOUS 2% ORAL/TOP 20 ML UNIT-DOSE CUP ONE (10:12)
[2018-10-05] MEDS ORDERED: SUCRALFATE 1 GM TABLET (FP) PO STA (10:17)
[2018-10-05 10:42] LABS: BASO % 0.7 % (0-2.0); EOS % 3.6 % (0-4.5); HEMATOCRIT 47.7 % (35.4-49); HEMOGLOBIN 16.3 GM/dL (11.7-16.9); LYMPH % 25.3 % (8-40); MCH 33.7 pg (25.7-33.7); MCHC 34.2 g/dl (32.0-35.9); MEAN CELL VOLUME 98.7 fl (80-96); MEAN PLT VOLUME 7.9 fl (7.5-11.1); MONO % 13.9 % (3.8-10.2); NEUT % 56.5 % (42.8-82.8); PLATELET COUNT 247 K/MM3 (134-434); RBC 4.83 M/mm3 (4.00-5.60); RDW 13.3 % (11.9-15.9); WHITE BLOOD COUNT 8.6 K/mm3 (4.0-10.0)
[2018-10-05 11:13] LABS: ALK PHOS 87 U/L (45-117); ANION GAP 5 MMOL/L (8-16); BLOOD UREA NITROGEN 8 mg/dL (7-18); CALCIUM 9.1 mg/dL (8.5-10.1); CHLORIDE 106 mmol/L (98-107); CO2 28 mmol/L (21-32); CREATININE 1.2 mg/dL (0.55-1.3); GLUCOSE,RANDOM 99 mg/dL (74-106); LIPASE 118 U/L (73-393); MAGNESIUM 2.1 mg/dL (1.8-2.4); PHOSPHOROUS 2.5 mg/dL (2.5-4.9); POTASSIUM 4.8 mmol/L (3.5-5.1); SGOT/AST 43 U/L (15-37); SGPT/ALT 93 U/L (13-61); SODIUM 139 mmol/L (136-145); TOT PROT 7.1 g/dl (6.4-8.2)
[2018-10-05 12:53] VITALS: BP 121/78; PULSE 60
== END 2018-10-05 12:45 | disposition home or self-care (01) ==
LOC: JER 08:13
PROC: 3E033GC Introduction of Other Therapeutic Substance into Peripheral Vein, Percutaneous Approach (ICD-10-PCS; principal; 2018-10-05)
PROC: 3E0337Z Introduction of Electrolytic and Water Balance Substance into Peripheral Vein, Percutaneous Approach (ICD-10-PCS; 2018-10-05)
DX: R10.12 Left upper quadrant pain (principal); R94.5 Abnormal results of liver function studies
CPT/HCPCS: 36415; 80053; 83690; 83735; 84100; 85025; 99282-25